=== PATIENT | male | born 1960 | race Caucasian/White ===

== ENCOUNTER 2017-07-01 17:11 | Emergency (ER) | payer MEDICAID ==
[~2017-07-01] VITALS: Ht 157.5 cm; Wt 127.0 kg
[2017-07-01 17:20] VITALS: BP 132/72
== END 2017-07-01 19:14 | disposition home or self-care (01) ==
LOC: ER 17:12
DX: S60.222A Contusion of left hand, initial encounter (principal); E78.00 Pure hypercholesterolemia, unspecified; I10 Essential (primary) hypertension; J45.909 Unspecified asthma, uncomplicated; K21.9 Gastro-esophageal reflux disease without esophagitis; E11.9 Type 2 diabetes mellitus without complications; W23.0XXA Caught, crushed, jammed, or pinched between moving objects, initial encounter; Y93.89 Activity, other specified; Y92.89 Other specified places as the place of occurrence of the external cause; Y99.8 Other external cause status
CPT/HCPCS: 73130; 90471; 90715; 99284; A4606; Z7610

== ENCOUNTER 2017-07-07 09:22 | Emergency (ER) | payer MEDICAID ==
[~2017-07-07] VITALS: Ht 152.4 cm; Wt 130.6 kg
[2017-07-07 09:22] VITALS: BP 118/76
== END 2017-07-07 10:34 | disposition home or self-care (01) ==
LOC: ER 09:26
DX: L03.114 Cellulitis of left upper limb (principal); I10 Essential (primary) hypertension; I25.10 Atherosclerotic heart disease of native coronary artery without angina pectoris
CPT/HCPCS: 73130; 99284; A4606; Z7610

== ENCOUNTER 2017-07-10 09:05 | Emergency (ER) | payer MEDICAID ==
[~2017-07-10] VITALS: Ht 167.6 cm; Wt 131.5 kg
[2017-07-10 09:16] VITALS: BP 129/74
== END 2017-07-10 09:38 | disposition home or self-care (01) ==
LOC: ER 09:08
DX: M67.442 Ganglion, left hand (principal); I10 Essential (primary) hypertension; I25.10 Atherosclerotic heart disease of native coronary artery without angina pectoris
CPT/HCPCS: 99281; A4606; Z7610; Z7502

== ENCOUNTER 2018-12-26 21:47 | Emergency (ER) | payer SELFPAY ==
[~2018-12-26] VITALS: Ht 160 cm; Wt 133.4 kg
[2018-12-26 23:00] VITALS: BP 157/111
== END 2018-12-26 23:10 | disposition home or self-care (01) ==
LOC: ER 21:51
DX: H10.12 Acute atopic conjunctivitis, left eye (principal); I10 Essential (primary) hypertension; I25.10 Atherosclerotic heart disease of native coronary artery without angina pectoris; E03.9 Hypothyroidism, unspecified